=== PATIENT | male | born 1970 | race Caucasian/White ===

== ENCOUNTER → 2017-12-20 | Outpatient (REF) | payer MEDICARE ==
[2017-12-20 13:24] LABS: BACTERIA, URINE AUTO NEGATIVE (NEGATIVE); RBC, URINE AUTO 0 /HPF (0-3); SQUAMOUS EPITHELIAL CELL UR AU 0 /HPF (0-6); WBC, URINE AUTO 0 /HPF (0-3)
== END ==
LOC: M SMT 12:35
DX: N45.1 Epididymitis (principal)
CPT/HCPCS: 81015

== ENCOUNTER 2018-03-13 06:24 | Day surgery (SDC) | payer MEDICARE, MEDICAID ==
[~2018-03-13 06:24] MED LIST: ACETAMINOPHEN 325 MG TAB PO
[2018-03-13] MEDS: TROPICAMIDE 1% OPHTH SOLN 2ML OS (06:53)
[2018-03-13] MEDS: OFLOXACIN 0.3 % (OCUFLOX) OPTH SOL 5ML OS (06:53)
[2018-03-13] MEDS: LIDOCAINE 3.5 % 1ML OPHTH TOPICAL GEL OU (06:53)
[2018-03-13] MEDS: CYCLOPENTOLATE 2% OPHTH SOLN 2ML BTL OS (06:53)
[2018-03-13] MEDS ORDERED: PHENYLEPHRINE 2.5% OPHTH SOL 2ML OS (07:00)
[2018-03-13] MEDS ORDERED: PHENYLEPHRINE HCL 10 % OPHTH. SOL 5ML OS (07:00)
[2018-03-13] MEDS ORDERED: PROPARACAINE 0.5% OPHTH SOL 15ML OS (07:01)
[2018-03-13] MEDS ORDERED: fentaNYL 100 MCG/2 ML INJECTION (J3010) As Ordered (08:06)
[2018-03-13] MEDS ORDERED: MIDAZOLAM INJ 2 MG/2 ML VIAL (J2250) As Ordered (08:06)
[2018-03-13] MEDS: POVIDONE-IODINE 5% OPHTH PREP SOL 30ML As Ordered (08:16)
[2018-03-13] MEDS: BALANCED SALT IRRIGATION SOLUTION 500ML BAG (FOR OR EYE MACHINE) As Ordered (08:18)
[2018-03-13] MEDS: CEFUROXIME 1MG/0.1ML INTRACAMERAL INJ As Ordered (08:18)
[2018-03-13] MEDS: HEALON DUET (HEALON 10MG/ML 0.55ML & HEALON ENDOCOAT 30MG/ML 0.85ML) As Ordered (08:18)
[2018-03-13] MEDS: LIDOCAINE 1% SDV 5 ML VIAL As Ordered (08:18)
[2018-03-13] MEDS ORDERED: ePHEDrine SULFATE 25 MG/5 ML(5MG/ML) SYRINGE As Ordered (08:19)
[2018-03-13] MEDS ORDERED: AcetaZOLAMIDE 500 MG ER CAP As Ordered (08:47)
[2018-03-13] MEDS: AcetaZOLAMIDE 500 MG ER CAP PO (09:00)
[2018-03-13] MEDS ORDERED: KETOROLAC 0.5% OPHTH SOLN OS (09:00)
[2018-03-13] MEDS ORDERED: TRIMETHOBENZAMIDE 300 MG CAP PO (09:00)
[2018-03-13] MEDS: ACETYLCHOLINE OPHTH SOLN 1% 2ML (MIOCHOL-E) As Ordered (12:40)
== END 2018-03-13 09:01 | disposition home or self-care (01) ==
LOC: M SDC 06:24
DX: H25.12 Age-related nuclear cataract, left eye (principal); Q78.0 Osteogenesis imperfecta; G89.29 Other chronic pain
CPT/HCPCS: 66984